=== PATIENT | male | born 1945 | race Caucasian/White ===

== ENCOUNTER → 2018-08-29 | Outpatient (CLI) | payer MEDICARE, SELFPAY ==
[2018-08-10 09:43] VITALS: BMI 36.8
--- NOTE | 2018-08-29 07:54 | ECHOD_ITS ---
Reason For Study: A. fib Procedure This was a 2D Doppler, Color Flow transthoracic echocardiogram. Exam performed in department. Left Ventricle Normal LV size. Left ventricular systolic function is normal. The estimated ejection fraction is 65 %. Stage 1 diastolic dysfunction. No regional wall motion abnormalities noted. Right Ventricle Normal RV size. Normal systolic function. Atria The left atrium is mildly enlarged. Normal right atrium. Mitral Valve Normal mitral valve. Trivial mitral valve insufficiency. Tricuspid Valve Normal tricuspid valve. Aortic Valve Normal aortic valve. Pulmonic Valve Normal pulmonic valve. Great Vessels Normal aortic root. The pulmonary artery is normal size. Normal inferior vena cava. Pericardium/Pleural No pericardial effusion. MMode/2D Measurements & Calculations LVIDd: 4.7 cm IVSd: 1.0 cm Ao root diam: 3.7 cm LVIDs: 3.0 cm LVPWd: 0.87 cm RVDd: 3.6 cm FS: 35.0 % LAV(MOD-bp): 78.9 ml LVAd ap4: 31.3 cm2 SV(MOD-sp4): 63.3 ml LAV(MOD-bp) Indexed: 32.8 ml/m2 EDV(MOD-sp4): 104.3 ml LAV(MOD-sp2): 70.2 ml EDV(sp4-el): 107.2 ml LAV(MOD-sp4): 85.4 ml LVAs ap4: 18.2 cm2 ESV(MOD-sp4): 41.0 ml ESV(sp4-el): 41.0 ml EF(MOD-sp4): 60.7 % EF(sp4-el): 61.7 % SV(sp4-el): 66.2 ml LA A4 area: 24.8 cm2 LA dimension(2D): 4.7 cm RA A4 area: 14.1 cm2 Doppler Measurements & Calculations MV E max ramirez: 88.0 cm/sec Lat Peak E' Ramirez: 7.5 cm/sec Med Peak E' Ramirez: 5.0 cm/sec MV A max ramirez: 99.6 cm/sec E/E' lat: 11.7 E/E' med: 17.4 MV E/A: 0.88 Ao V2 max: 164.6 cm/sec LV V1 max: 126.1 cm/sec PA V2 max: 72.6 cm/sec Ao max P.8 mmHg LV V1 max P.4 mmHg TR max ramirez: 320.3 cm/sec TR max P.1 mmHg Interpretation Summary Normal LV size. Left ventricular systolic function is normal. The estimated ejection fraction is 65 %. Stage 1 diastolic dysfunction. The left atrium is mildly enlarged. Ordering Physician: Luisito Cain Referring Physician: Chantell Lynch Performed By: Elissa Burns RDCS
== END | disposition home or self-care (01) ==
PROVIDERS: Family Provider Internal Medicine; PCP Internal Medicine; Referring Provider Internal Medicine Cardiovascular Disease; Visit Provider Internal Medicine Cardiovascular Disease
DX: I48.0 Paroxysmal atrial fibrillation (principal)
CPT/HCPCS: 93306

== ENCOUNTER → 2023-04-05 | Outpatient (CLI) | payer MEDICARE, SELFPAY ==
[2023-04-05 11:18] LABS: Absolute Lymphocyte Count 1.62 X10^3/uL (0.83-4.51); Absolute Neutrophil Count 4.9 X10^3/uL (2.0-7.7); Basophil# 0.06 X10^3/uL; Basophil% 0.7 % (0-1); Hematocrit 50.7 % (40-54); Lymphocyte # 1.62 X10^3/ul (0.83-4.51); Mean Corp Hgb Conc 33.5 g/dL (32-36); Mean Corpuscular Hgb 32.3 pg (27.0-32.0); Mean Corpuscular Volume 96.4 fL (80-94); Mean Platelet Vol. 9.4 fl (6.2-12.0); Monocyte# 1.11 X10^3/uL; Monocyte% 13.7 % (0-10); NRBC Flagged by Analyzer 0 % (0-5); Neutrophil # 4.86 X10^3/uL (2.7-7.7); Neutrophil % 60.2 % (47-70); Platelet Count 207 K/mm3 (150-450); RBC Distribution Width CV 14.3 % (11.6-14.6); RBC Distribution Width SD 51.1 fl (35.1-43.9); Red Blood Count 5.26 M/mm3 (4.6-6.2); White Blood Count 8.1 K/mm3 (4.4-11.0)
[2023-04-05 11:46] LABS: Anion Gap 3 (5-15); BUN 29 mg/dL (7-18); BUN/Creat Ratio 16.9 RATIO (10-20); Calcium,Total 9.3 mg/dL (8.5-10.1); Chloride 108 mmol/L (98-107); Creatinine, Serum 1.72 mg/dL (0.70-1.30); EST Glomerular Filtration Rate 41 mL/min (>60); Est Glom Filt Rate - Afr Amer 50 mL/min (>60); Glucose 113 mg/dL (74-106); Potassium 4.6 mmol/L (3.5-5.1); Sodium Level 142 mmol/L (136-145)
== END | disposition home or self-care (01) ==
LOC: LAB 10:37
PROVIDERS: PCP Internal Medicine; Referring Provider Nurse Practitioner Family; Visit Provider Nurse Practitioner Family
DX: R06.02 Shortness of breath (principal); I48.0 Paroxysmal atrial fibrillation
CPT/HCPCS: 36415; 80048; 83880; 85025

== ENCOUNTER → 2024-06-19 | Outpatient (CLI) | payer MEDICARE, SELFPAY ==
--- NOTE | 2024-06-19 13:38 | ECHOD_ITS ---
Reason For Study Reason For Study: ATRIAL FIBRILLATION Procedure This was a 2D Doppler, Color Flow transthoracic echocardiogram. Exam performed in department. Left Ventricle Normal LV size. The left ventricular ejection fraction is 55 %. No regional wall motion abnormalities noted. Right Ventricle Normal RV size. Normal systolic function. Atria The left atrium is mildly enlarged. The right atrium is mildly enlarged. Mitral Valve Normal mitral valve. Tricuspid Valve Normal tricuspid valve. Mild (1+) tricuspid valve insufficiency. Pulmonary artery systolic pressure is 45 mmHg. Aortic Valve Trisinus/trileaflet aortic valve. Mild focal aortic valve calcification. Pulmonic Valve Normal pulmonic valve. Great Vessels Normal aortic root. The pulmonary artery is normal size. Inferior vena cava collapse with respiration. Pericardium/Pleural No pericardial effusion. MMode/2D Measurements & Calculations LVIDd: 4.8 cm IVSd: 1.2 cm Ao root diam: 3.2 cm LVIDs: 3.3 cm LVPWd: 1.1 cm RVDd: 3.5 cm FS: 31.1 % LAV(MOD-bp): 69.1 ml LVAd ap4: 25.4 cm2 SV(MOD-sp4): 41.3 ml LAV(MOD-bp) Indexed: 28.5 ml/m2 LVLd ap4: 7.0 cm SI(MOD-sp4): 17.1 ml/m2 LAV(MOD-sp2): 64.8 ml EDV(MOD-sp4): 75.1 ml LAV(MOD-sp4): 72.4 ml EDV(sp4-el): 78.0 ml LVAs ap4: 15.6 cm2 LVLs ap4: 6.2 cm ESV(MOD-sp4): 33.8 ml ESV(sp4-el): 33.6 ml EF(MOD-sp4): 55.0 % EF(sp4-el): 57.0 % SV(sp4-el): 44.4 ml LA A4 area: 23.9 cm2 LA dimension(2D): 3.8 cm RA A4 area: 23.6 cm2 Doppler Measurements & Calculations MV E max abisai: 103.9 cm/sec Ao V2 max: 112.4 cm/sec LV V1 max: 80.8 cm/sec Ao max P.1 mmHg LV V1 max P.6 mmHg PA V2 max: 63.3 cm/sec TR max abisai: 327.2 cm/sec TR max P.8 mmHg ECHO/Echo Complete Interpretation Summary The left ventricular ejection fraction is 55 %. Pulmonary artery systolic pressure is 45 mmHg. Mild focal aortic valve calcification. Mild biatrial enlargement. Ordering Physician: Luisito Cain Referring Physician: TAB DAMON Performed By: Ciara Delgado RDCS
== END | disposition home or self-care (01) ==
LOC: CVS 13:36
PROVIDERS: PCP Internal Medicine; Referring Provider Internal Medicine Cardiovascular Disease; Visit Provider Internal Medicine Cardiovascular Disease
DX: I48.0 Paroxysmal atrial fibrillation (principal)
CPT/HCPCS: 93306